=== PATIENT | female | born 1975 | race Caucasian/White ===

== ENCOUNTER 2016-07-26 02:55 | Emergency (ER) | payer SELFPAY ==
[~2016-07-26] VITALS: Ht 157.5 cm; Wt 68.0 kg
--- NOTE | 2016-07-26 03:00 | NUR ---
PATIENT TO ER OF
[2016-07-26 03:03] VITALS: BP 127/90
--- NOTE | 2016-07-26 03:10 | NUR ---
PATIENT BEING EVALUATED BY DR. GALLAGHER.
[2016-07-26 03:53] VITALS: BP 118/67
--- NOTE | 2016-07-26 03:53 | NUR ---
Patient discharged with v/s stable. Written and verbal after care instructions given and explained. Patient alert, oriented and verbalized understanding of instructions. Ambulatory with steady gait. All questions addressed prior to discharge. ID band removed. Patient advised to follow up with PMD. Rx of Robitussin DM, Biaxin, Tobradex given. Patient educated on indication of medication including possible reaction and side effects. Opportunity to ask questions provided and answered.
== END 2016-07-26 03:53 | disposition home or self-care (01) ==
LOC: MED 02:55
DX: J06.9 Acute upper respiratory infection, unspecified (principal); Z88.0 Allergy status to penicillin; Z88.2 Allergy status to sulfonamides
CPT/HCPCS: 99283

== ENCOUNTER 2017-03-24 05:15 | Emergency (ER) | payer SELFPAY ==
[~2017-03-24] VITALS: Ht 160 cm; Wt 69.9 kg
[2017-03-24 05:18] VITALS: BP 120/63
--- NOTE | 2017-03-24 05:24 | NUR ---
PT TAKEN TO BED 3
--- NOTE | 2017-03-24 05:34 | NUR ---
pt c/o cough, fever, abd pain [id number]. RR EVEN AND UNLABORED, BL BS CLEAR THROUGH OUT. PT HAS DRY HACKING COUGH. PT HAS NO FEVER UPON ARRIVAL TO ED. PAIN TO ABD WHEN COUGHING, 6/10, NON RADITATING, BS ACTIVE X4. PT STATES SHE IS TAKING OTC MEDS W/ MINIMAL RELIEF. HX PT WAS SEEN IN ED FOR UTI AND IS CURRENTLY TAKING MACROBID. ALLERGY TO PCN AND SULFA.
--- NOTE | 2017-03-24 05:38 | NUR ---
Patient discharged with v/s stable. Written and verbal after care instructions given and explained. Patient alert, oriented and verbalized understanding of instructions. Ambulatory with steady gait. All questions addressed prior to discharge. ID band removed. Patient advised to follow up with PMD. Rx of CODEINE PHOSPAHTE/PROMETHAZINE given. Patient educated on indication of medication including possible reaction and side effects. Opportunity to ask questions provided and answered.
[2017-03-24 05:39] VITALS: BP 120/63
== END 2017-03-24 05:38 | disposition home or self-care (01) ==
LOC: MED 05:15
DX: J40 Bronchitis, not specified as acute or chronic (principal); F17.210 Nicotine dependence, cigarettes, uncomplicated; Z88.0 Allergy status to penicillin; Z88.2 Allergy status to sulfonamides
CPT/HCPCS: 99283

== ENCOUNTER 2022-08-07 22:58 | Emergency (ER) | payer SELFPAY ==
[~2022-08-07] VITALS: Ht 157.5 cm; Wt 61.2 kg
[2022-08-07 23:15] VITALS: BP 142/65
--- NOTE | 2022-08-07 23:18 | NUR ---
TO LOBBY A/W BED AMBULATORY
--- NOTE | 2022-08-08 01:54 | NUR ---
PT TO BED #5
[2022-08-08] MEDS ORDERED: KETOROLAC 30 MG/ML VIAL IM ONE (02:00)
[2022-08-08 02:24] LABS: APPEARANCE,URINE CLEAR (CLEAR); BILIRUBIN,URINE NEGATIVE (NEGATIVE); BLOOD, URINE NEGATIVE (NEGATIVE); COLOR,URINE YELLOW (YELLOW); LEUKOCYTE ESTERASE ,URINE NEGATIVE (NEGATIVE); NITRITE, URINE NEGATIVE (NEGATIVE); UGLUCOSE NEGATIVE (NEGATIVE)
--- NOTE | 2022-08-08 02:26 | NUR ---
URINE COLLECTED AND SENT TO LAB
--- NOTE | 2022-08-08 02:26 | NUR ---
47YR OLD FEMALE BIB SELF C/O MULTI COMPLIANTS. PT STATES HAVING A JENKINS X 4DAYS. THROAT AND MOUTH PAIN X4DAYS. BURNING DURING URINATION X4DAYS. PT IS A&OX4. PCN SULFUR NO MED HX
[2022-08-08 02:34] LABS: BARBITURATE, URINE NEGATIVE ng/ml (NEG <=200); BENZODIAZEPINE, URINE NEGATIVE ng/mL (NEG <=200); CANNABINOID, URINE NEGATIVE ng/mL (NEG <=50); COCAINE, URINE NEGATIVE ng/mL (NEG <=300); OPIATE, URINE NEGATIVE ng/mL (NEG <=2000); PHENCYCLIDINE SCREEN,URINE NEGATIVE ng/mL (NEG <=25)
[2022-08-08] MEDS ORDERED: CHLO473S62 PO (03:25)
[2022-08-08 03:34] VITALS: BP 142/65
--- NOTE | 2022-08-08 03:34 | NUR ---
Patient discharged with v/s stable. Written and verbal after care instructions given and explained. Patient verbalized understanding. Ambulatory with steady gait. All questions addressed prior to discharge. Advised to follow up with PMD.
== END 2022-08-08 03:34 | disposition home or self-care (01) ==
LOC: MED 22:58
DX: K12.1 Other forms of stomatitis (principal); Z98.890 Other specified postprocedural states; Z79.899 Other long term (current) drug therapy; Z88.0 Allergy status to penicillin; Z88.2 Allergy status to sulfonamides
CPT/HCPCS: 80305; 81003; 87491; 96372; 99283; J1885